=== PATIENT | female | born 1935 | race Caucasian/White ===

== ENCOUNTER 2017-08-26 03:37 | Inpatient (IN) | payer OTHER, MEDICARE ==
[~2017-08-26] VITALS: Ht 152.4 cm; Wt 58.0 kg
[2017-08-26 04:06] LABS: HEMATOCRIT 38.8 % (36.0-46.0); HEMOGLOBIN 12.9 G/DL (11.9-15.5); MCH 27.5 PG (29.0-34.0); MCHC 33.2 G/DL (30.0-36.0); MCV 82.7 FL (83-99); RBC DIS.WIDTH-CV 15.2 % (11.8-14.6); RBC DIS.WIDTH-SD 45.8 % (39-53); RED BLOOD COUNT 4.69 M/uL (3.80-5.20); WHITE BLOOD COUNT 24.3 K/uL (4.1-10.2)
[2017-08-26 04:17] LABS: CHLORIDE 100 mEq/L (99-109); POTASSIUM 4.1 mEq/L (3.7-5.4); SODIUM 134 mEq/L (136-147)
[2017-08-26 04:19] LABS: GLUCOSE 303 mg/dL (70-99)
[2017-08-26 04:23] LABS: CREATININE 1.9 mg/dL (0.6-1.3); GFR ESTIMATE (CALCULATED) 27 mL/min/
[2017-08-26 04:24] LABS: UREA NITROGEN (BUN) 32 mg/dL (9-23)
[2017-08-26 04:27] LABS: TROP-I INTERPRETATION NEGATIVE; TROPONIN-I 0.17 ng/mL (0.0-0.30)
[2017-08-26 04:34] LABS: BASE EXCESS -5.4 mEq/L (-3 to +3); BICARBONATE 21.6 mEq/L (22-26); CARBOXY HGB 3.9 % (0-5); COMMENTS - BLOOD GASES A+C+; DEVICE 840 MASK VENT; FI02 50 %; METHEMOGLOBIN 0.5 % (0-1.5); MODE SPONT; PCO2 47 mm Hg (35-45); PO2 71 mm Hg (80-100); SITE RR; pH 7.27 (7.35-7.45)
[2017-08-26 04:35] LABS: CONTINUOUS POS AIRWAY PRESSURE 6 cm H2O; PRES. SUPPORT 12 CM/H2O; TOTAL RESP RATE 25 resp/min
[2017-08-26 04:58] LABS: PLAT.SUFFICIENCY ADEQUATE; PLATELET COUNT 301 K/uL (156-360)
[2017-08-26] MEDS ORDERED: LOPRESSOR50 MG PO (05:15)
[2017-08-26] MEDS ORDERED: FUROSEMIDE20 MG PO (05:16)
[2017-08-26] MEDS ORDERED: LEVOTHYROXINE50 MCG PO (05:16)
[2017-08-26] MEDS ORDERED: HYDROCHLOROTHIA25 MG PO (05:16)
[2017-08-26] MEDS ORDERED: ATORVASTATIN CA40 MG PO (05:16)
[2017-08-26] MEDS ORDERED: TRANDOLAPRIL4 MG PO (05:16)
[2017-08-26] MEDS ORDERED: METFORMIN HCL1000 MG PO (05:17)
[2017-08-26] MEDS ORDERED: ASPIRIN325 MG PO (05:22)
[2017-08-26] MEDS ORDERED: CALTRATE 600 +1 EAC1 PO (11:41)
[2017-08-26] MEDS ORDERED: FISH OIL 500 M1 EAC2 PO (11:42)
[2017-08-26 21:00] VITALS: BP 120/56
[2017-08-27] VITALS (7 sets, daily range): BP systolic 99–137; BP diastolic 51–65
[2017-08-27 14:59] LABS: TROP-I INTERPRETATION POSITIVE; TROPONIN-I 15.03 ng/mL (0.0-0.30)
[2017-08-27 16:15] LABS: CHLORIDE 100 MEQ/L (99-109); POTASSIUM 3.5 MEQ/L (3.7-5.4); SODIUM 136 MEQ/L (136-147)
[2017-08-27 16:20] LABS: GFR ESTIMATE (CALCULATED) 46 mL/min/; GLUCOSE 176 mg/dL (70-99); UREA NITROGEN (BUN) 28 mg/dL (9-23)
[2017-08-27 16:23] LABS: CREATININE 1.2 MG/DL (0.6-1.3)
[2017-08-28] VITALS (14 sets, daily range): BP systolic 73–155; BP diastolic 41–81
[2017-08-28 04:32] LABS: HEMATOCRIT 30.5 % (36.0-46.0); HEMOGLOBIN 10.3 G/DL (11.9-15.5); MCH 27.3 PG (29.0-34.0); MCHC 33.8 G/DL (30.0-36.0); MCV 80.9 FL (83-99); RBC DIS.WIDTH-CV 15.2 % (11.8-14.6); RBC DIS.WIDTH-SD 44.2 % (39-53); RED BLOOD COUNT 3.77 M/uL (3.80-5.20); WHITE BLOOD COUNT 8.2 K/uL (4.1-10.2)
[2017-08-28 05:09] LABS: CHLORIDE 101 mEq/L (99-109); SODIUM 136 mEq/L (136-147)
[2017-08-28 05:15] LABS: CREATININE 1.1 mg/dL (0.6-1.3); GFR ESTIMATE (CALCULATED) 51 mL/min/
[2017-08-28 05:16] LABS: GLUCOSE 118 mg/dL (70-99); UREA NITROGEN (BUN) 24 mg/dL (9-23)
[2017-08-28 05:56] LABS: PLAT.SUFFICIENCY ADEQUATE
[2017-08-28 06:09] LABS: PLATELET COUNT 206 K/uL (156-360)
[2017-08-28 14:05] LABS: BICARBONATE 23.4 mEq/L (22-26); CARBOXY HGB 2.1 % (0-5); METHEMOGLOBIN 1.3 % (0-1.5); PCO2 51 mm Hg (35-45)
[2017-08-28 14:06] LABS: COMMENTS - BLOOD GASES A+C+; DEVICE NRBM; FI02 100 %; O2 FLOW 15 L/MIN; PO2 212 mm Hg (80-100); SITE RR; TOTAL RESP RATE 28 resp/min; pH 7.27 (7.35-7.45)
[2017-08-28 15:05] LABS: BASE EXCESS -2.7 mEq/L (-3 to +3); BICARBONATE 24.1 mEq/L (22-26); METHEMOGLOBIN 1.5 % (0-1.5); PCO2 49 mm Hg (35-45); PO2 84 mm Hg (80-100)
[2017-08-28 15:06] LABS: COMMENTS - BLOOD GASES A+C+; DEVICE NIV; FI02 50 %; MODE SPONT; PEEP 5 CM/H20; PRES. SUPPORT 12 CM/H2O; SITE LR; TOTAL RESP RATE 23 resp/min
[2017-08-29] VITALS (20 sets, daily range): BP systolic 64–149; BP diastolic 34–80
[2017-08-29 06:11] LABS: HEMATOCRIT 31.9 % (36.0-46.0); HEMOGLOBIN 10.4 G/DL (11.9-15.5); MCH 26.5 PG (29.0-34.0); MCHC 32.6 G/DL (30.0-36.0); MCV 81.2 FL (83-99); PLATELET COUNT 247 K/uL (156-360); RBC DIS.WIDTH-CV 14.9 % (11.8-14.6); RED BLOOD COUNT 3.93 M/uL (3.80-5.20)
[2017-08-29 06:31] LABS: CHLORIDE 100 MEQ/L (99-109); CREATININE 1.3 MG/DL (0.6-1.3); GFR ESTIMATE (CALCULATED) 42 mL/min/; GLUCOSE 185 mg/dL (70-99); POTASSIUM 3.8 MEQ/L (3.7-5.4); SODIUM 137 MEQ/L (136-147); UREA NITROGEN (BUN) 23 mg/dL (9-23)
[2017-08-29 12:45] LABS: TROP-I INTERPRETATION POSITIVE; TROPONIN-I 4.66 ng/mL (0.0-0.30)
== END 2017-08-29 16:56 | disposition short-term general hospital (02) | DRG 280 ==
LOC: EME → EDBD 03:37 → EME 03:37 → 4WEST 06:10 → EDOF 06:10 → 4EAST 06:10 → ENRESERV 08:54 → 4EAST 20:57 → ENRESERV 08-28 14:28 → 4WEST 08-28 14:29
PROVIDERS: Emergency Medicine; Family Medicine; Internal Medicine; Internal Medicine Cardiovascular Disease; Internal Medicine Critical Care Medicine; Internal Medicine Pulmonary Disease
DX: I21.4 Non-ST elevation (NSTEMI) myocardial infarction (principal); I35.0 Nonrheumatic aortic (valve) stenosis; J18.9 Pneumonia, unspecified organism; J96.01 Acute respiratory failure with hypoxia; J96.02 Acute respiratory failure with hypercapnia; I25.119 Atherosclerotic heart disease of native coronary artery with unspecified angina pectoris; N17.9 Acute kidney failure, unspecified; I13.0 Hypertensive heart and chronic kidney disease with heart failure and stage 1 through stage 4 chronic kidney disease, or unspecified chronic kidney disease; J98.11 Atelectasis; E87.2 Acidosis; E11.22 Type 2 diabetes mellitus with diabetic chronic kidney disease; J44.0 Chronic obstructive pulmonary disease with (acute) lower respiratory infection; I25.2 Old myocardial infarction; J44.1 Chronic obstructive pulmonary disease with (acute) exacerbation; I27.20 Pulmonary hypertension, unspecified; N18.9 Chronic kidney disease, unspecified; E78.5 Hyperlipidemia, unspecified; Z53.8 Procedure and treatment not carried out for other reasons; F17.210 Nicotine dependence, cigarettes, uncomplicated; E03.9 Hypothyroidism, unspecified; I44.7 Left bundle-branch block, unspecified; Z95.5 Presence of coronary angioplasty implant and graft; Z98.51 Tubal ligation status; Z86.73 Personal history of transient ischemic attack (TIA), and cerebral infarction without residual deficits
CPT/HCPCS: 36600; 71045; 80048; 82803; 82948; 83880; 84484; 85027; 85730; 87040; 87641; 93005; 93306; 94002; 94640; 94640 76; 94760; 94799; 99202; 99281; 99285; C1769; J0456; J0696; J1644; J1815; J1940; J2250; J2270; J2920